=== PATIENT | female | born 1995 | race Caucasian/White ===

== ENCOUNTER 2017-06-22 23:25 | Emergency (ER) | payer MEDICAID ==
[2017-06-22 23:40] VITALS: BP 131/84
[2017-06-23] MEDS ORDERED: Take Home: Acetaminophen/HYDROcodone 325-5 MG, 5 Tab Pack PO ONE (00:03)
[2017-06-23] MEDS ORDERED: Take Home: Cyclobenzaprine 10 MG Tab, 4 Tab Pack PO ONE (00:03)
--- NOTE | 2017-06-23 00:39 | EDM.PDOC ---
ED HPI GENERAL MEDICAL PROBLEM - General Chief Complaint: Back Pain or Injury Stated Complaint: Right low back pain, right leg pain Time Seen by Provider: 06/22/17 23:40 Source of Information: Reports: Patient History Limitations: Reports: No Limitations - History of Present Illness INITIAL COMMENTS - FREE TEXT/NARRATIVE: Pt. states that she has been experiencing low back pain for approx. 2 weeks. Pt. states that it has gotten worse, and over the past several days, is experiencing radiculopathy in her R lower extremity. Pt. states that the radiculopathy is located in the lateral aspect of the thigh, and does not extend past the knee or into the foot/toes. She denies any trauma, and states that the discomfort started when she was lying flat after donating blood. She denies any saddle anesthesia or incontinence. States that she has taken some tylenol with minimal improvement. Onset Date: 06/06/17 Duration: Getting Worse Location: Reports: Back, Lower Extremity, Right Quality: Reports: Ache, Burning (in R thigh), Throbbing Severity: Moderate Improves with: Reports: None Worsens with: Reports: Movement Associated Symptoms: Reports: No Other Symptoms Treatments DIFFERENTIAL TESTER: Reports: Acetaminophen, Other (see below) Other Treatments DIFFERENTIAL TESTER: heat right low back Pain Score (Numeric/FACES): 8 - Related Data Allergies Allergy/AdvReac Type Severity Reaction Status Date / Time No Known Drug Allergies Allergy Other Verified 06/22/17 23:40 Home Meds: Home Meds ARIPiprazole [Abilify] 20 mg PO DAILY 06/10/14 [History] Benztropine Mesylate [Benztropine Mesylate] 0.5 mg PO BID 06/10/14 [History] Desmopressin [Desmopressin] 0.1 mg PO BEDTIME 06/10/14 [History] Ethynodiol D-Ethinyl Estradiol [Kelnor 1-35 28 Tablet] 1 tab PO DAILY 06/10/14 [ History] Omeprazole [Omeprazole] 20 mg PO DAILY 06/10/14 [History] busPIRone [Buspar] 10 mg PO BEDTIME 06/10/14 [History] busPIRone [Buspar] 15 mg PO BID 06/10/14 [History] Past Medical History HEENT History: Reports: Allergic Rhinitis Cardiovascular History: Reports: High Cholesterol Gastrointestinal History: Reports: Other (See Below) Other Gastrointestinal History: esophagitis SENIOR INFORMATION DEVELOPER History: Reports: Dysfunctional Uterine Bleeding Psychiatric History: Reports: ADD, Developmental Delay, Mood Swings, Other (See Below) Other Psychiatric History: Tic disorder Hematologic History: Reports: Anemia, Iron Deficiency, Other (See Below) Other Hematologic History: Von Willebrand disease - Past Surgical History HEENT Surgical History: Reports: Adenoidectomy, Tonsillectomy Social & Family History - Tobacco Use Smoking Status *Q: Never Smoker ED ROS GENERAL - Review of Systems Review Of Systems: See Below Musculoskeletal: Reports: Back Pain, Leg Pain ED EXAM,LOWER BACK PAIN/INJURY - Physical Exam Exam: See Below Text/Narrative:: Increased pain with lumbar extension. Normal lumbar flexion. Increased pain with R and L lumbar bending. General Appearance: Alert Back Exam: Normal Inspection, Muscle Spasm, Vertebral Tenderness Extremities: Normal Inspection, Normal Range of Motion Neurological: Alert, Normal Mood/Affect, Abnormal Sensation (please see above), Straight Leg Raise (R), Difficulty Walking DTR - Lower Extremities: 2+: Knee (R), Knee (L) Course - Vital Signs Last Recorded V/S: Last Vital Signs Temp 35.7 C 06/22/17 23:30 Pulse 72 06/22/17 23:30 Resp 16 06/22/17 23:30 BP 131/84 06/22/17 23:30 Pulse Ox 100 06/22/17 23:30 - Orders/Labs/Meds Meds: Medications Discontinued Medications Generic Name Dose Route Start Last Admin Trade Name Freq PRN Reason Stop Dose Admin Hydrocodone Bitart/Acetaminophen 1 packet 06/23/17 00:03 06/23/17 00:14 Take Home: Acetam/Hydrocodon 325-5 Mg, 5 Pack PO 06/23/17 00:04 1 packet ONETIME ONE Administration Cyclobenzaprine HCl 1 packet 06/23/17 00:03 06/23/17 00:14 Take Home: Cyclobenzaprine 10 Mg, 4 Tab Pack PO 06/23/17 00:04 1 packet ONETIME ONE Administration Departure - Departure Time of Disposition: 00:30 Disposition: Home, Self-Care 01 Clinical Impression: Sciatica, Low back pain associated with a spinal disorder other than radiculopathy or spinal stenosis - Discharge Information Instructions: Back Pain, Adult, Spinal Stenosis, [id number] Forms: ED Department Discharge Additional Instructions: Ibuprofen 600mg every 6 hours as needed for pain. [place] 5/325 1 tab every 4-6 hours as needed for pain Flexeril 10mg 1 tab 3 times daily for muscle spasm We will contact you regarding a PT appointment Follow-up in clinic in 7-[address] Francisco - Assessment/Plan Assessment:: low back pain with R lower extremity radiculopathy Plan: Ibuprofen 600mg every 6 hours [place] 10/325mg every 4-6 hours as needed for pain Flexeril 10mg three times daily We will contact you regarding a PT appointment. Follow-up with Dr. Francisco in 10-14 days for recheck/evaluation for possible MRI if failing conservative treatment.
== END 2017-06-23 00:30 | disposition home or self-care (01) ==
LOC: VM.ED 23:25
DX: M54.41 Lumbago with sciatica, right side (principal); E78.00 Pure hypercholesterolemia, unspecified; Z98.890 Other specified postprocedural states; Z79.899 Other long term (current) drug therapy
CPT/HCPCS: 99283; A9270

== ENCOUNTER 2017-11-08 21:34 | Emergency (ER) | payer MEDICAID ==
[2017-11-08] MEDS ORDERED: Sodium Chloride 0.9% 10 ML Syringe FLUSH PRN (21:48)
[2017-11-08] MEDS ORDERED: Sodium Chloride 0.9% 1,000 ML IV ONE (21:48)
[2017-11-08] MEDS ORDERED: Ondansetron 4 MG/2 ML SDV IVPUSH ONE (21:48)
[2017-11-08] MEDS ORDERED: Pantoprazole 40 MG Vial IVPUSH ONE (21:48)
--- NOTE | 2017-11-08 22:04 | EDM.PDOC ---
ED HPI GENERAL MEDICAL PROBLEM - General Chief Complaint: Gastrointestinal Problem Stated Complaint: Vomiting Blood Time Seen by Provider: 11/08/17 21:35 Source of Information: Reports: Patient History Limitations: Reports: No Limitations - History of Present Illness INITIAL COMMENTS - FREE TEXT/NARRATIVE: Patient presents to the emergency room this evening with complaints of bloody emesis. She does have a known history of von Willebrand's disease. Reportedly she is had a colonoscopy and endoscopy in September of this year, with a repeat endoscopy yesterday. She also does have some mental deficits and is a resident at [facility]. Her staff member is here with her tonight to provide additional information as needed. She does have a history of anemia related to blood loss. She states that she was vomiting bright red blood up to 3 times within a 5-10 minute period. She is a patient of Dr. Romero at the [facility]. She did have her endoscopy yesterday at the [facility] in [place]. She denies any dizziness, shortness of breath, chest pain, abdominal pain , fever, chills, and no musculoskeletal complaints. She denies smoking, drinking alcohol, and illegal drug use. She has not had any additional emesis since her first reports. She also denies any bloody stools at this point. To note she does take iron supplements which causes her to have dark colored stools. Again there been no stool changes. Onset: Today, Sudden - Related Data Allergies Allergy/AdvReac Type Severity Reaction Status Date / Time corn Allergy Rash Verified 11/08/17 21:46 Hayfever Allergy Sneezing Uncoded 11/08/17 22:23 Home Meds: Home Meds ARIPiprazole [Abilify] 20 mg PO DAILY 06/10/14 [History] Benztropine Mesylate [Benztropine Mesylate] 0.5 mg PO BID 06/10/14 [History] Desmopressin [Desmopressin] 0.1 mg PO BEDTIME 06/10/14 [History] Ethynodiol D-Ethinyl Estradiol [Kelnor 1-35 28 Tablet] 1 tab PO DAILY 06/10/14 [ History] Omeprazole [Omeprazole] 20 mg PO DAILY 06/10/14 [History] busPIRone [Buspar] 10 mg PO BEDTIME 06/10/14 [History] busPIRone [Buspar] 15 mg PO BID 06/10/14 [History] Past Medical History HEENT History: Reports: Allergic Rhinitis Cardiovascular History: Reports: High Cholesterol Gastrointestinal History: Reports: Other (See Below) Other Gastrointestinal History: esophagitis HOSPITAL INTERN History: Reports: Dysfunctional Uterine Bleeding Psychiatric History: Reports: ADD, Developmental Delay, Mood Swings, Other (See Below) Other Psychiatric History: Tic disorder Hematologic History: Reports: Anemia, Iron Deficiency, Other (See Below) Other Hematologic History: Von Willebrand disease - Past Surgical History HEENT Surgical History: Reports: Adenoidectomy, Tonsillectomy Social & Family History - Tobacco Use Smoking Status *Q: Never Smoker ED ROS GENERAL - Review of Systems Review Of Systems: See Below Constitutional: Reports: No Symptoms HEENT: Reports: No Symptoms Respiratory: Reports: No Symptoms Cardiovascular: Reports: No Symptoms Endocrine: Reports: No Symptoms GI/Abdominal: Reports: Hematemesis : Reports: No Symptoms Musculoskeletal: Reports: No Symptoms Skin: Reports: No Symptoms Neurological: Reports: No Symptoms Psychiatric: Reports: No Symptoms Hematologic/Lymphatic: Reports: No Symptoms Immunologic: Reports: No Symptoms ED EXAM, GI/ABD - Physical Exam Exam: See Below Exam Limited By: No Limitations General Appearance: Alert, WD/WN, No Apparent Distress Eyes: Bilateral: EOMI Ears: Normal TMs Nose: Normal Inspection Throat/Mouth: Normal Inspection, Normal Lips, Normal Teeth, Normal Gums, Normal Oropharynx, Normal Voice, No Airway Compromise Head: Atraumatic, Normocephalic Neck: Normal Inspection, Supple, Non-Tender, Full Range of Motion Respiratory/Chest: No Respiratory Distress, Lungs Clear, Normal Breath Sounds, No Accessory Muscle Use, Chest Non-Tender Cardiovascular: Normal Peripheral Pulses, Regular Rate, Rhythm, No Edema, No Gallop, No JVD, No Murmur, No Rub GI/Abdominal Exam: Normal Bowel Sounds, Soft, Non-Tender, No Organomegaly, No Distention, No Abnormal Bruit, No Mass, Pelvis Stable Back Exam: Normal Inspection, Full Range of Motion, NT Extremities: Normal Inspection, Normal Range of Motion, Non-Tender, Normal Capillary Refill, No Pedal Edema Neurological: Alert, Oriented, CN II-XII Intact, Normal Cognition, Normal Gait, Normal Reflexes, No Motor/Sensory Deficits Psychiatric: Normal Affect, Anxious Skin Exam: Warm, Dry, Intact, Normal Color, No Rash Lymphatic: No Adenopathy Course - Orders/Labs/Meds Orders: Active Orders 24 hr Category Date Time Status BASIC METABOLIC PANEL,BMP [CHEM] Stat Lab 11/08/17 21:48 Ordered CBC WITH AUTO DIFF [HEME] Stat Lab 11/08/17 21:48 Ordered Sodium Chloride 0.9% [Normal Saline] 1,000 ml Med 11/08/17 21:48 Ordered IV ONETIME Sodium Chloride 0.9% [Saline Flush] Med 11/08/17 21:48 Ordered 10 ml FLUSH ASDIRECTED PRN Saline Lock Insert [OM.PC] Routine Oth 11/08/17 21:48 Ordered Medication Orders Sodium Chloride (Normal Saline) 1,000 mls @ 999 mls/hr IV ONETIME ONE Stop: 11/08/17 22:48 Sodium Chloride (Saline Flush) 10 ml FLUSH ASDIRECTED PRN PRN Reason: Keep Vein Open Meds: Medications Generic Name Dose Route Start Last Admin Trade Name Freq PRN Reason Stop Dose Admin Sodium Chloride 1,000 mls @ 999 mls/hr 11/08/17 21:48 Normal Saline IV 11/08/17 22:48 ONETIME ONE Sodium Chloride 10 ml 11/08/17 21:48 Saline Flush FLUSH ASDIRECTED PRN Keep Vein Open Discontinued Medications Generic Name Dose Route Start Last Admin Trade Name Freq PRN Reason Stop Dose Admin Ondansetron HCl 4 mg 11/08/17 21:48 Zofran IVPUSH 11/08/17 21:49 ONETIME ONE Pantoprazole Sodium 40 mg 11/08/17 21:48 Protonix Iv IVPUSH 11/08/17 21:49 ONETIME ONE - Re-Assessments/Exams Free Text/Narrative Re-Assessment/Exam: 11/08/17 22:24 I did discuss patient care with her father who is her power of recreation facilities supervisor Free Text/Narrative Re-Assessment/Exam: 11/08/17 22:40 I did visit with Dr. Resendez this evening from [facility]. He will accept the patient for transfer via private vehicle due to her vital signs being stable and no further emesis. She will have somebody accompanying her and driving for her. Departure - Departure Time of Disposition: 22:44 Disposition: DC/Tfer to Acute Hospital 02 Condition: Good Clinical Impression: GI bleed - Discharge Information Instructions: Gastrointestinal Bleeding, [id number] Referrals: Yin Francisco MD [Primary Care Provider] - Forms: ED Department Discharge, Interfacility Transfer [facility] ED Communication - Discussed Case With (1) Discussed Case With (1): Admitting Provider (Dr. Resendez given report via [facility]. He will accept patient.) - Problem List & Annotations (1) GI bleed SNOMED Code(s): 32349583 Code(s): K92.2 - GASTROINTESTINAL HEMORRHAGE, UNSPECIFIED Status: Acute Priority: Low Current Visit: Yes Qualifiers: GI bleed type/associated pathology: unspecified gastrointestinal hemorrhage type Qualified Code(s): K92.2 - Gastrointestinal hemorrhage, unspecified - Problem List Review Problem List Initiated/Reviewed/Updated: Yes - My Orders Last 24 Hours: My Active Orders 11/08/17 21:48 BASIC METABOLIC PANEL,BMP [CHEM] Stat CBC WITH AUTO DIFF [HEME] Stat Sodium Chloride 0.9% [Normal Saline] 1,000 ml IV ONETIME Sodium Chloride 0.9% [Saline Flush] 10 ml FLUSH ASDIRECTED PRN Saline Lock Insert [OM.PC] Routine - Assessment/Plan Last 24 Hours: My Active Orders 11/08/17 21:48 BASIC METABOLIC PANEL,BMP [CHEM] Stat CBC WITH AUTO DIFF [HEME] Stat Sodium Chloride 0.9% [Normal Saline] 1,000 ml IV ONETIME Sodium Chloride 0.9% [Saline Flush] 10 ml FLUSH ASDIRECTED PRN Saline Lock Insert [OM.PC] Routine Assessment:: gi bleed Plan: transfer to [facility] for further investigation
[2017-11-08 22:25] VITALS: BP 133/80
[2017-11-08 22:25] LABS: CHLORIDE,CL 111 mmol/L (98-107); SODIUM,NA 144 mmol/L (136-145)
== END 2017-11-08 22:57 | disposition short-term general hospital (02) ==
LOC: SUPCPDRO 21:34 → VM.ED 21:34
DX: K92.2 Gastrointestinal hemorrhage, unspecified (principal); E78.00 Pure hypercholesterolemia, unspecified; D68.0 Von Willebrand disease; Z91.018 Allergy to other foods; Z79.899 Other long term (current) drug therapy
CPT/HCPCS: 36415; 80048; 85025; 96365; 96375; 99285; C9113; J2405; J7030

== ENCOUNTER 2024-01-26 17:31 | Emergency (ER) | payer MEDICARE, MEDICAID ==
[2024-01-26] MEDS ORDERED: Sodium Chloride 0.9% 10 ML Syringe FLUSH PRN (17:52)
[2024-01-26] MEDS ORDERED: HYDROmorphone 1 MG/ML Syringe IVPUSH ONE (17:54)
[2024-01-26] MEDS ORDERED: HYDROmorphone 1 MG/ML Syringe SUBCUT ONE (18:21)
[2024-01-26 18:35] LABS: BASOPHILS PERCENT AUTO 0.1 % (0.2-1.2); EOSINOPHILS ABSOLUTE AUTO 0.1 x10^3/uL (0.0-0.5); EOSINOPHILS PERCENT AUTO 1.3 % (0.0-4.0); HEMATOCRIT 44.3 % (33.0-47.0); LYMPHOCYTES ABSOLUTE AUTO 2.7 x10^3/uL (1.0-4.8); LYMPHOCYTES PERCENT AUTO 29.9 % (25.0-50.0); MEAN CORPUSCULAR HEMOGLOBIN 28.2 pg (26.0-32.0); MEAN CORPUSCULAR HGB CONC 33.9 g/dL (32.0-36.0); MEAN CORPUSCULAR VOLUME 83.4 fL (78.0-93.0); MONOCYTES ABSOLUTE AUTO 0.5 x10^3/uL (0.0-0.8); MONOCYTES PERCENT AUTO 5.5 % (2.0-11.0); NEUTROPHILS ABSOLUTE AUTO 5.7 x10^3/uL (1.8-7.7); NEUTROPHILS PERCENT AUTO 63.2 % (50.0-80.0); PLATELET COUNT,PLT 251 x10^3/uL (130-400); RED BLOOD CELL COUNT 5.31 x10^6/uL (4.00-5.50); WHITE BLOOD CELL COUNT,WBC 9.1 x10^3/uL (4.0-10.0)
[2024-01-26] MEDS: Lactated Ringers 1,000 ML IV ONE ×2 (18:43→19:11)
[2024-01-26] MEDS: Ondansetron 4 MG/2 ML SDV IVPUSH ONE (18:43)
[2024-01-26] MEDS: HYDROmorphone 1 MG/ML Syringe IVPUSH ONE (18:45)
[2024-01-26 18:56] LABS: APPEARANCE,URINE TURBID (CLEAR); BILIRUBIN,URINE NEGATIVE (NEGATIVE); COLOR,URINE BROWN (YELLOW); GLUCOSE,URINE NEGATIVE (NEGATIVE); KETONES,URINE NEGATIVE (NEGATIVE); LEUKOCYTE ESTERASE,URINE NEGATIVE (NEGATIVE); NITRITE,URINE NEGATIVE (NEGATIVE); OCCULT BLOOD,URINE LARGE (NEGATIVE); PH,URINE 5.5 (5.0-8.0); PROTEIN,URINE 30 mg/dL (NEGATIVE); UROBILINOGEN,URINE 0.2 EU/dL (0.2)
[2024-01-26 18:58] LABS: INR 0.9 (0.9-1.1); PROTHROMBIN TIME 9.3 SEC (8.9-11.5); PTT,PARTIAL THROMBOPLSTIN TIME 27.6 SEC (21.9-33.8)
[2024-01-26 19:00] LABS: A/G RATIO 1.08; ALANINE AMINOTRANSFERASE,ALT 20 U/L (14-59); ALBUMIN 3.9 g/dL (3.4-5.0); ALKALINE PHOSPHATASE 72 U/L (46-116); AMYLASE 59 U/L (25-115); ANION GAP 17.4 mmol/L (5-15); ASPARTATE AMNIOTRANSFERASE,AST 16 U/L (15-37); BILIRUBIN TOTAL 0.3 mg/dL (0.2-1.0); BLOOD UREA NITROGEN,BUN 11 mg/dL (7-18); C-REACTIVE PROTEIN 0.74 mg/dL (<=0.50); CALCIUM 9.5 mg/dL (8.5-10.1); CARBON DIOXIDE,CO2 26 mmol/L (21-32); CHLORIDE,CL 107 mmol/L (98-107); CREATININE 0.8 mg/dL (0.55-1.02); ESTIMATED GFR 102 mL/min (>=60); GLUCOSE RANDOM 87 mg/dL (70-99); LIPASE 36 U/L (19-71); MAGNESIUM 2.1 mg/dL (1.8-2.4); POTASSIUM,K 4.4 mmol/L (3.5-5.1); PROTEIN TOTAL,TP 7.5 g/dL (6.4-8.2); SODIUM,NA 146 mmol/L (136-145)
[2024-01-26 19:02] VITALS: BP 142/84; PULSE 90
[2024-01-26 19:02] LABS: BACTERIA,URINE FEW /HPF (NOT SEEN); RBC,URINE 50-75 /HPF (NOT SEEN); SQUAMOUS EPITHELIAL CELLS,UR MODERATE /HPF (NOT SEEN); WBC,URINE 0-5 /HPF (NOT SEEN)
[2024-01-26 19:02] LABS: LACTIC ACID 0.7 mmol/L (0.4-2.0)
[2024-01-26] MEDS ORDERED: Take Home: Acetaminophen/HYDROcodone 325-5 MG, 5 Tab Pack PO ONE (20:07)
== END 2024-01-26 20:22 | disposition home or self-care (01) ==
LOC: VM.ED 17:31
DX: K82.9 Disease of gallbladder, unspecified (principal); E78.00 Pure hypercholesterolemia, unspecified; E66.9 Obesity, unspecified; Z79.84 Long term (current) use of oral hypoglycemic drugs; Z79.899 Other long term (current) drug therapy; Z91.048 Other nonmedicinal substance allergy status; Z91.018 Allergy to other foods
CPT/HCPCS: 36415; 80053; 81001; 81025; 82150; 83605; 83690; 83735; 85025; 85610; 85730; 86140; 96361; 96374; 96375; 99284; 99284-25; J1170; J2405; J7120

== ENCOUNTER 2024-09-14 14:34 | Observation (INO) | payer MEDICARE, MEDICAID ==
[2024-09-14 15:44] LABS: BASOPHILS PERCENT AUTO 0.2 % (0.2-1.2); EOSINOPHILS ABSOLUTE AUTO 0.1 x10^3/uL (0.0-0.5); HEMATOCRIT 44.7 % (33.0-47.0); HEMOGLOBIN 15.4 g/dL (12.0-16.0); IMMATURE GRAN ABSOLUTE AUTO 0.01 x10^3/uL (0.00-0.07); LYMPHOCYTES ABSOLUTE AUTO 2.3 x10^3/uL (1.0-4.8); MEAN CORPUSCULAR HEMOGLOBIN 28.6 pg (26.0-32.0); MEAN CORPUSCULAR HGB CONC 34.5 g/dL (32.0-36.0); MEAN CORPUSCULAR VOLUME 82.9 fL (78.0-93.0); MONOCYTES ABSOLUTE AUTO 0.5 x10^3/uL (0.0-0.8); NEUTROPHILS ABSOLUTE AUTO 6.1 x10^3/uL (1.8-7.7); NEUTROPHILS PERCENT AUTO 67.7 % (50.0-80.0); PLATELET COUNT,PLT 283 x10^3/uL (130-400); RED BLOOD CELL COUNT 5.39 x10^6/uL (4.00-5.50)
[2024-09-14 16:00] LABS: A/G RATIO 1.14; ALANINE AMINOTRANSFERASE,ALT 31 U/L (14-59); ALKALINE PHOSPHATASE 86 U/L (46-116); ASPARTATE AMNIOTRANSFERASE,AST 18 U/L (15-37); BILIRUBIN TOTAL 0.4 mg/dL (0.2-1.0); BLOOD UREA NITROGEN,BUN 9 mg/dL (7-18); CALCIUM 9.4 mg/dL (8.5-10.1); CARBON DIOXIDE,CO2 27 mmol/L (21-32); CHLORIDE,CL 104 mmol/L (98-107); CREATININE 0.9 mg/dL (0.55-1.02); GLUCOSE RANDOM 90 mg/dL (70-99); POTASSIUM,K 3.9 mmol/L (3.5-5.1); PROTEIN TOTAL,TP 7.5 g/dL (6.4-8.2); SODIUM,NA 140 mmol/L (136-145)
[2024-09-14 16:02] LABS: ANION GAP 12.9 mmol/L (5-15); ESTIMATED GFR 88 mL/min (>=60)
[2024-09-14] MEDS: Iopamidol 612 MG/ML 100 ML Bottle IVPUSH ONE (16:16)
[2024-09-14] MEDS: Pantoprazole 40 MG Vial IVPUSH ONE (16:47)
[2024-09-14] MEDS: Piperacillin/Tazobactam 4.5 GM in Sodium Chloride 0.9% 100 ML IV ONE (20:00)
[2024-09-14] MEDS: Ondansetron 4 MG/2 ML SDV IVPUSH ONE ×2 (20:45→20:48)
[2024-09-14] MEDS: metroNIDAZOLE/Normal Saline 500 MG in Premix Bag 1 BAG IV SCH (20:48)
[2024-09-14] MEDS: busPIRone 5 MG Tab PO ONE (20:52)
[2024-09-14] MEDS: Ondansetron 4 MG/2 ML SDV ONE (20:53)
[2024-09-14] MEDS: metFORMIN 500 MG Tab PO SCH (20:54)
[2024-09-14] MEDS: Desmopressin 0.2 MG Tab PO SCH (21:02)
[2024-09-15 07:07] LABS: BASOPHILS PERCENT AUTO 0.4 % (0.2-1.2); EOSINOPHILS ABSOLUTE AUTO 0.1 x10^3/uL (0.0-0.5); HEMATOCRIT 40.6 % (33.0-47.0); HEMOGLOBIN 14.1 g/dL (12.0-16.0); IMMATURE GRAN ABSOLUTE AUTO 0.01 x10^3/uL (0.00-0.07); LYMPHOCYTES ABSOLUTE AUTO 1.2 x10^3/uL (1.0-4.8); LYMPHOCYTES PERCENT AUTO 23.2 % (25.0-50.0); MEAN CORPUSCULAR HEMOGLOBIN 29.2 pg (26.0-32.0); MEAN CORPUSCULAR HGB CONC 34.7 g/dL (32.0-36.0); MEAN CORPUSCULAR VOLUME 84.1 fL (78.0-93.0); MONOCYTES ABSOLUTE AUTO 0.4 x10^3/uL (0.0-0.8); MONOCYTES PERCENT AUTO 7.7 % (2.0-11.0); NEUTROPHILS ABSOLUTE AUTO 3.4 x10^3/uL (1.8-7.7); NEUTROPHILS PERCENT AUTO 66.5 % (50.0-80.0); PLATELET COUNT,PLT 231 x10^3/uL (130-400); RED BLOOD CELL COUNT 4.83 x10^6/uL (4.00-5.50); WHITE BLOOD CELL COUNT,WBC 5.1 x10^3/uL (4.0-10.0)
[2024-09-15] MEDS ORDERED: metFORMIN 500 MG Tab PO SCH (08:00)
[2024-09-15] MEDS ORDERED: Hypromellose 0.3% Ophth Soln 15 ML Bottle EYEBOTH PRN (08:12)
[2024-09-15] MEDS ORDERED: Simethicone 80 MG Tab.Chew PO PRN (08:12)
[2024-09-15] MEDS ORDERED: ARIPiprazole 5 MG Tab PO SCH (09:00)
[2024-09-15] MEDS: Polyethylene Glycol 3350 Powder 17 GM Packet PO SCH (10:26)
[2024-09-15] MEDS: Pantoprazole 40 MG Vial IVPUSH SCH (10:26)
[2024-09-15] MEDS: Acetaminophen 325 MG Tab PO PRN (10:27)
[2024-09-15] MEDS: Ascorbic Acid 500 MG Tab PO SCH (10:27)
[2024-09-15] MEDS: Docusate Sodium 100 MG Cap PO SCH (10:28)
[2024-09-15] MEDS: Loratadine 10 MG Tab PO SCH (10:28)
[2024-09-15] MEDS: Ferrous Sulfate 325 MG Tab PO SCH (10:28)
[2024-09-15] MEDS: Famotidine 20 MG Tab PO SCH (10:28)
[2024-09-15] MEDS: ARIPiprazole 5 MG Tab PO SCH (10:43)
[2024-09-15] MEDS: Dicyclomine 10 MG Cap PO PRN (10:43)
[2024-09-15] MEDS: DEXMETHYLPHENIDATE 10 MG PO SCH (10:43)
[2024-09-15] MEDS: busPIRone 5 MG Tab PO SCH (11:54)
[2024-09-15] MEDS: BUSPIRONE PO SCH ×2 (11:56→11:58)
[2024-09-15] MEDS: Benztropine 0.5 MG Tab PO SCH (11:56)
[2024-09-15] MEDS: Ondansetron 4 MG/2 ML SDV IVPUSH PRN (12:17)
[2024-09-15] MEDS: DEXMETHYLPHENIDATE HCL 10 MG PO SCH (15:52)
[2024-09-15] MEDS: metFORMIN 500 MG Tab PO SCH (17:35)
[2024-09-15] MEDS: Desmopressin 0.2 MG Tab PO SCH (20:19)
[2024-09-16 07:15] LABS: HEMATOCRIT 42.9 % (33.0-47.0); HEMOGLOBIN 14.5 g/dL (12.0-16.0); MEAN CORPUSCULAR HEMOGLOBIN 28.7 pg (26.0-32.0); MEAN CORPUSCULAR HGB CONC 33.8 g/dL (32.0-36.0); PLATELET COUNT,PLT 241 x10^3/uL (130-400); RED BLOOD CELL COUNT 5.05 x10^6/uL (4.00-5.50); WHITE BLOOD CELL COUNT,WBC 6.7 x10^3/uL (4.0-10.0)
[2024-09-16 07:39] LABS: A/G RATIO 1.03; ALBUMIN 3.3 g/dL (3.4-5.0); ANION GAP 16.3 mmol/L (5-15); BILIRUBIN TOTAL 0.3 mg/dL (0.2-1.0); CALCIUM 9.2 mg/dL (8.5-10.1); CREATININE 0.8 mg/dL (0.55-1.02); EST CRCL DRUG DOSING (CG) 88.79 mL/min; POTASSIUM,K 4.3 mmol/L (3.5-5.1); PROTEIN TOTAL,TP 6.5 g/dL (6.4-8.2)
[2024-09-16 07:44] LABS: EOSINOPHILS ABSOLUTE MAN 0.1 x10^3/uL (0.0-0.5); EOSINOPHILS PERCENT MAN 2 % (0-4); LYMPHOCYTES ABSOLUTE MAN 0.9 x10^3/uL (1.0-4.8); LYMPHOCYTES PERCENT MAN 14 % (25-50); MONOCYTES ABSOLUTE MAN 0.3 x10^3/uL (0.0-0.8); MONOCYTES PERCENT MAN 4 % (2-11); NEUTROPHILS ABSOLUTE MAN 5.4 x10^3/uL (1.8-7.7); SEG NEUTROPHILS PERCENT MAN 80 % (50-80)
[2024-09-16 11:11] VITALS: BP 136/73; PULSE 94
[2024-09-17] MEDS ORDERED: MEDROXYPROGESTERONE 150 MG/ML IM SCH (09:00)
== END 2024-09-16 12:30 | disposition home or self-care (01) ==
LOC: VM.ED 14:34 → VM.MS 19:06
PROVIDERS: ADMIT Nurse Practitioner Family; ATTEND Nurse Practitioner Family
DX: K92.2 Gastrointestinal hemorrhage, unspecified (principal); K52.9 Noninfective gastroenteritis and colitis, unspecified; E78.00 Pure hypercholesterolemia, unspecified; Z79.899 Other long term (current) drug therapy
CPT/HCPCS: 36415; 74177; 80053; 82274; 85025; 96365; 96375; 99285-25; A9270-GY; J1836; J2405; J2470; J2543; J3490; Q9967

== ENCOUNTER 2025-08-10 16:40 | Emergency (ER) | payer MEDICARE, MEDICAID ==
[2025-08-10 17:20] VITALS: BP 138/60; PULSE 90
[2025-08-10] MEDS ORDERED: Sodium Chloride 0.9% 10 ML Syringe FLUSH PRN (17:24)
[2025-08-10] MEDS: Ondansetron 4 MG Tab.DIS PO ONE (18:00)
[2025-08-10] MEDS: diphenhydrAMINE 50 MG/ML SDV IVPUSH ONE (18:17)
[2025-08-10] MEDS: Ondansetron 4 MG/2 ML SDV IVPUSH ONE (18:18)
[2025-08-10 18:22] LABS: BASOPHILS ABSOLUTE AUTO 0.0 x10^3/uL (0.0-0.2); BASOPHILS PERCENT AUTO 0.3 % (0.2-1.2); EOSINOPHILS ABSOLUTE AUTO 0.1 x10^3/uL (0.0-0.5); EOSINOPHILS PERCENT AUTO 1.2 % (0.0-4.0); IMMATURE GRAN ABSOLUTE AUTO 0.01 x10^3/uL (0.00-0.07); IMMATURE GRAN PERCENT AUTO 0.10 % (0.00-0.43); LYMPHOCYTES ABSOLUTE AUTO 2.7 x10^3/uL (1.0-4.8); LYMPHOCYTES PERCENT AUTO 26.3 % (25.0-50.0); MONOCYTES ABSOLUTE AUTO 0.6 x10^3/uL (0.0-0.8); MONOCYTES PERCENT AUTO 5.7 % (2.0-11.0); NEUTROPHILS ABSOLUTE AUTO 6.7 x10^3/uL (1.8-7.7); NEUTROPHILS PERCENT AUTO 66.4 % (50.0-80.0); PLATELET COUNT,PLT 237 x10^3/uL (130-400); RED BLOOD CELL COUNT 4.66 x10^6/uL (4.00-5.50); WHITE BLOOD CELL COUNT,WBC 10.1 x10^3/uL (4.0-10.0)
[2025-08-10 18:42] LABS: A/G RATIO 1.03; ALANINE AMINOTRANSFERASE,ALT 19.0 U/L (14-59); ASPARTATE AMNIOTRANSFERASE,AST 16.0 U/L (15-37); BILIRUBIN TOTAL 0.4 mg/dL (0.2-1.0); BLOOD UREA NITROGEN,BUN 5.0 mg/dL (7-18); CARBON DIOXIDE,CO2 24.0 mmol/L (21-32); CHLORIDE,CL 104.0 mmol/L (98-107); CREATININE 0.6 mg/dL (0.55-1.02); EST CRCL DRUG DOSING (CG) 117.31 mL/min; GLUCOSE RANDOM 86.0 mg/dL (70-99); POTASSIUM,K 3.6 mmol/L (3.5-5.1); PROTEIN TOTAL,TP 6.9 g/dL (6.4-8.2); SODIUM,NA 140.0 mmol/L (136-145)
[2025-08-10 18:43] LABS: ESTIMATED GFR 123.0 mL/min (>=60)
== END 2025-08-10 19:00 | disposition home or self-care (01) ==
LOC: VM.ED 16:40
DX: K92.1 Melena (principal); E78.00 Pure hypercholesterolemia, unspecified; Z91.018 Allergy to other foods; Z91.048 Other nonmedicinal substance allergy status; Z79.84 Long term (current) use of oral hypoglycemic drugs; Z79.899 Other long term (current) drug therapy
CPT/HCPCS: 36415; 80053; 83690; 85025; 99284; A9270-GY